=== PATIENT | male | born 1985 | race Two or more races ===

== ENCOUNTER 2020-06-30 19:59 | Emergency (ER) | payer OTHER ==
[~2020-06-30] VITALS: Ht 180.3 cm; Wt 104.3 kg
--- NOTE | 2020-06-30 20:07 | NUR ---
PT AAOX4. BIB [facility] FOR MEDICAL CLEARANCE FOR BOOKING C/O COUGH WITH SOB X2 DAYS. PLACED ON MONITOR AND PULSE OX. SAT 99%. NO ACUTE DISTRESS NOTED. VSS.
--- NOTE | 2020-06-30 21:00 | NUR ---
XRAY AT BEDSIDE
--- NOTE | 2020-06-30 22:09 | NUR ---
COVID SWAB COLLECTED AND SENT TO LAB.
--- NOTE | 2020-06-30 23:33 | NUR ---
LAB CALLED REGARDING NEGATIVE COVID RESULT.
--- NOTE | 2020-06-30 23:40 | NUR ---
PT MEDICALLY CLEARED.
[2020-06-30 23:41] VITALS: BP 145/86
== END 2020-06-30 23:41 ==
LOC: ER 20:01
DX: Z04.89 Encounter for examination and observation for other specified reasons (principal); R05 Cough; Z20.828 Contact with and (suspected) exposure to other viral communicable diseases; F17.210 Nicotine dependence, cigarettes, uncomplicated; Z72.0 Tobacco use; J98.11 Atelectasis
CPT/HCPCS: 71045; 87426; 99284; C9803